=== PATIENT | female | born 1970 | race Caucasian/White ===

== ENCOUNTER 2021-10-07 12:22 | Outpatient (CLI) | payer BC, SELFPAY ==
[2021-10-08 08:08] LABS: Cholesterol* 274 mg/dL (90-199)
[2021-10-08 08:09] LABS: Triglycerides* 52 mg/dL (40-149)
[2021-10-08 08:22] LABS: HDL Cholesterol* 166 mg/dL (>=50); LDL Cholesterol Calculated 98 mg/dL (<100)
== END 2021-10-07 12:23 | disposition home or self-care (01) ==
LOC: FBOREF 12:23
PROVIDERS: PCP Family Medicine; Visit Provider Family Medicine
DX: F10.20 Alcohol dependence, uncomplicated (principal); Z13.6 Encounter for screening for cardiovascular disorders; F32.9 Major depressive disorder, single episode, unspecified
CPT/HCPCS: 80053; 80061; 82977

== ENCOUNTER 2021-12-23 13:41 | Outpatient (CLI) | payer BC, SELFPAY ==
--- NOTE | 2021-12-23 14:00 | CRLHL7_ITS ---
For Patients: As a result of the Cures Act, medical imaging exams and procedure reports are released immediately into your electronic medical record. You may view this report before your referring provider. If you have questions, please contact your health care provider. BILATERAL SCREENING MAMMOGRAM WITH COMPUTER-AIDED DETECTION AND TOMOSYNTHESIS TECHNIQUE: CC and MLO views were obtained. These mammographic images have been obtained using full-field digital technique. These mammographic images were interpreted with the benefit of computer-aided detection. Breast Tomosynthesis was used in this interpretation. COMPARISON FILM: 12/05/20, 10/24/19, 06/15/18. FINDINGS: There are scattered areas of fibroglandular density IMPRESSION: There is no radiographic evidence for malignancy. ASSESSMENT: BI-RADS Category 1: Negative RECOMMENDATION: Routine screening mammogram in 1 year. A lay language report of this examination will be provided to the patient. Herrera Ga M.D. Diagnostic Radiologist [email or web address] / be/Dictated by: Herrera Ga MD @ 12/24/2021 8:37:00 AM (Electronically Signed)
== END 2021-12-23 13:42 | disposition home or self-care (01) ==
PROVIDERS: PCP Family Medicine; Visit Provider Obstetrics & Gynecology
DX: Z12.31 Encounter for screening mammogram for malignant neoplasm of breast (principal)
CPT/HCPCS: 77063; 77067

== ENCOUNTER 2022-09-05 13:21 | Outpatient (CLI) | payer BC, SELFPAY | END 2022-09-05 13:22 | disposition home or self-care (01) | PROVIDERS: PCP Family Medicine; Visit Provider Family Medicine | DX: R79.89 Other specified abnormal findings of blood chemistry (principal); F10.20 Alcohol dependence, uncomplicated; F32.A Depression, unspecified | CPT/HCPCS: 80048; 80076; 82977 ==

== ENCOUNTER 2023-01-26 14:53 | Outpatient (CLI) | payer BC, SELFPAY ==
--- NOTE | 2023-01-26 15:00 | CRLHL7_ITS ---
For Patients: As a result of the Cures Act, medical imaging exams and procedure reports are released immediately into your electronic medical record. You may view this report before your referring provider. If you have questions, please contact your health care provider. BILATERAL SCREENING MAMMOGRAM WITH COMPUTER-AIDED DETECTION AND TOMOSYNTHESIS TECHNIQUE: CC and MLO views were obtained. These mammographic images have been obtained using full-field digital technique. These mammographic images were interpreted with the benefit of computer-aided detection. Breast tomosynthesis was used in this interpretation. COMPARISON FILM: 12/23/21, 12/05/20, 10/24/19. FINDINGS: There are scattered areas of fibroglandular density. IMPRESSION: There is no radiographic evidence for malignancy. ASSESSMENT: BI-RADS Category 1: Negative RECOMMENDATION: Routine screening mammogram in 1 year. A lay language report of this examination will be provided to the patient. HERRERA MENDEZ M.D. Diagnostic Radiologist [email or web address] Transcribed: 01/27/2023, 2:[address]/Dictated by: Herrera Mendez MD @ 01/27/2023 8:34:00 AM (Electronically Signed)
== END 2023-01-26 14:54 | disposition home or self-care (01) ==
LOC: MAMMO 14:54
PROVIDERS: PCP Family Medicine; Visit Provider Obstetrics & Gynecology
DX: Z12.31 Encounter for screening mammogram for malignant neoplasm of breast (principal)
CPT/HCPCS: 77063; 77067

== ENCOUNTER 2024-03-18 14:13 | Outpatient (CLI) | payer BC, SELFPAY | END 2024-03-18 14:14 | disposition home or self-care (01) | LOC: AMB 03-27 06:26 | PROVIDERS: PCP Family Medicine; Visit Provider Student in an Organized Health Care Education/Training Program | DX: R55 Syncope and collapse (principal); R41.82 Altered mental status, unspecified | CPT/HCPCS: A0425; A0427 ==

== ENCOUNTER 2024-03-18 14:46 | Inpatient (IN) | payer BC, SELFPAY ==
[2024-03-18] VITALS (24 sets, daily range): BP systolic 115–175; BP diastolic 78–103; PULSE 87–109; RESP 16–20; TEMP 36.6–37.6; O2SAT 96–98; BMI 20.1; BMI 20.7
--- OUTSIDE RECORDS SUMMARY | 2024-03-18 14:48 | XMS_ITS | Clinical Summary ---
Author Organization [facility] Address [place], [place] [address] Care Team Providers Care Chief [facility] Division Name Role Phone Loi Flaherty Isaac Sahu [phone] Herrera Lobo MD Primary Care Provider + Allergies No known active allergies Medications naproxen (NAPROSYN) 375 mg tabletIndication s:Injury of coccyx, initial encounter Take 1 tablet by mouth 2 times daily with meals. 30 tablet 04/07/2018 Active LESSINA 0.1-20 mg-mcg tabletIndication s:Family planning TAKE 1 TABLET BY MOUTH DAILY 84 tablet 04/15/2019 Active Active Problems No known active problems Resolved Problems Problem Noted Date Diagnosed Date Resolved Date IUD - Mirena 04/25/2008 03/11/2017 Overview (12/19/2010): Placed in 11/2010 Immunizations Name Administration Dates Next Due Influenza, IIV3 (Age >=3 years) 01/01/2004 Influenza, IIV4 11/16/2019 Td (Age >=7 Years) 07/28/2002 Tdap 05/25/2013 Family History Medical History Relation Name Comments Good Health Father Cancer-breast Maternal Aunt 2x Cancer-breast Mother Diabetes Paternal Aunt Also with a ki dney and pancreas tx. Cancer Paternal Grandfather lung ca ncer Good Health Sister Relation Name Status Comments Father Maternal Aunt Mother Paternal Aunt Paternal Grandfather Sister Social History Tobacco Use Types Packs/Day Years Used Date Smoking Tobacco: Never Smokeless Tobacco: Never Tobacco Cessation:Counseling Given: Yes Alcohol Use Standard Drinks/Week Comments Yes 0 (1 standard drink = 0.6 oz pur e alcohol) 1 to 4 drinks weekly Comments No Sex and Gender Information Value Date Recorded Sex Assigned at Not on file Legal Sex Female 5:24 AM [facility] Gender Identity Not on file Sexual Orientation Not on file 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 Not on file Not on file Obstetrics History Last Filed Vital Signs Vital Sign Reading Time Taken Comments Blood Pressure 122/85 04/07/2018 9:33 AM [facility] Pulse 82 04/07/2018 9:33 AM [facility] Temperature 36.8 C (98.3 F) 04/07/2018 9:33 AM [facility] Respiratory Rate - - Oxygen Saturation 97% 04/07/2018 9:33 AM [facility] Inhaled Oxygen Concentration - - Weight 57.2 kg (126 lb) 04/07/2018 9:33 AM [facility] Height 162.1 cm (5' 3.82) 04/07/2018 9:33 AM CS T Body Mass Index 21.75 04/07/2018 9:33 AM [facility] Plan of Treatment Health Maintenance Due Date Last Done Comments HIV for age 15-65 08/19/1987 Hepatitis C screening for age 18-79 1990 Colonoscopy through age 75 2017 Depression screening for age 12+ 03/11/2018 03/11/2017, 03/30/2015 BMI (ht and wt on same day) for age 18+ 04/07/2019 04/07/2018, 02/08/2018, 03/11/2017, Additional history exists Lipids for age 45-75 03/30/2020 03/30/2015, 05/25/2013, 01/09/2010, Additional history exists Mammogram for age 45-75 10/23/2020 10/24/19 20, 06/15/2018, 09/10/2017, Additional history exists Pneumococcal series for age 50+ (1 of 1 - PCV) 2022 Zoster (shingles) series for age 50+ (1 of 2) 2022 Tetanus booster 05/26/2023 05/25/2013, 07/28/2002 Pap test for age 21-65 09/18/2023 , 09/17/2020, 03/11/2017, Additional history exists COVID-19 vaccine series ( season) 2023 Influenza for age 50-64 10/25/2023 11/16/2019, 12/31 Tdap Completed 05/25/2013 Pneumococcal series for age 6-49 Aged Out No longer eligible based on patient's age to complete this topic Procedures Procedure Name Priority Date/Time Associated Diagnosis Comments MOLECULAR PHYSICIST THIN PREP PAP SCREEN IMAGED Routine 09/17/2020 9:40 AM CDT SCAN-MAMMOGRAPHY REPORT 10/24/2019 12:00 AM CDT LIPID PANEL W REFLEX MEASURED LDL Routine 03/30/2015 2:00 PM [facility] Lipid screening from Last 3 Months or Most Recently Relevant to Health Maintenance Results * MOLECULAR PHYSICIST THIN PREP PAP SCREEN IMAGED (09/17/2020 9:40 AM CDT) Case Report Gynecologic Cytology Report Case: [id number] Authorizing Provider: Amanda Daniels Collected: 09/17/2020 0940 MD Soraida Ordering Location: [facility] Received: 09/17/2020 1644 First Screen: Niki Portillo Specimen: MOLECULAR PHYSICIST ThinPrep Vial Screening, Cervical 09/27/2020 9:06 AM CDT [facility] INTERPRETATION/ RESULT NEGATIVE FOR INTRAEPITHELIAL LESION OR MALIGNANCY (NIL) (none) 09/27/2020 9:06 AM CDT [facility] IMEN ADEQUACY Satisfactory for evaluation Endocervical component present 09/27/2020 9:06 AM CDT [facility] HPV REQUEST HPV and PAP 09/27/2020 9:06 AM CDT [facility] Date of LMP 08/22/2020 09/27/2020 9:06 AM CDT [facility] Last Pap Date 02/23/2017 09/27/2020 9:06 AM CDT [facility] Last Pap Result NIL 9:06 AM CDT [facility] Menstrual Status 09/27/2020 9:06 AM T [facility] Comment:hormone usage, ORAL BC Additional Information 09/27/2020 9:06 AM T [facility] Comment: Interpreted at [facility] - [address], [place] [address] Automated Review Successful 09/27/2020 9:06 AM T [facility] Comment:Specimen processed s uccessfully by automated bioprocess engineer device, ThinPrep Imaging System, [employer] ANCILLARY TESTING MOLECULAR PHYSICIST HPV Ordered, Please see separate report 09/27/2020 9:06 AM T [facility] Note The pap test is a screening technique, not a diagnostic procedure. It is used primarily to screen for squamous cancers and precursor lesions. Published studies have shown that it is subject to both false negative and false positive results. The pap test should not be used as the sole means to diagnose or exclude pre-malignant and malignant lesions. 09/27/2020 9:06 AM T [facility] Other (Cervical) 09/17/2020 9:40 AM CDT 09/17/2020 4:44 PM CDT us Amanda Daniels MD PATHOLOGY/CYTOLOGY Final Result [facility] [address] [place] [address], [place] * SCAN-MAMMOGRAPHY REPORT (10/24/2019 12:00 AM CDT) Anatomical Region Laterality Modality Other us Scanner OTHER Final Result * (ABNORMAL) LIPID PANEL W REFLEX MEASURED LDL (03/30/2015 2:00 PM [facility]) CHOLESTEROL,TOTAL 230(H) 100 - 199 mg/dL 03/30/2015 2:29 PM [facility] TRIGLYCERIDES 48 <150 mg/dL 03/30/2015 2:29 PM [facility] HDL CHOLESTEROL 99 >40 mg/dL 03/30/2015 2:29 PM [facility] NON-HDL CHOLESTEROL 131 <145 mg/dl 03/30/2015 2:29 PM [facility] CHOL/HDL RATIO 2.32 <4.50 03/30/2015 2:29 PM [facility] LDL CHOLESTEROL 121 <=130 mg/dL 03/30/2015 2:29 PM [facility] PATIENT STATUS NON-FASTI NG 03/30/2015 2:29 PM [facility] Comment:HAD SMALL BITE TO EA T TODAY. Blood specimen (specimen) BLOOD SPECIMEN / Unknown Butterfly / Unknown 03/30/2015 2:00 PM [facility] 03/30/2015 2:00 PM [facility] us Cam Elizondo MD CHEMISTRY Final Resu lt [facility] [address] [place] [address], from Last 3 Months or Most Recently Relevant to Health Maintenance Insurance [facility] Care Teams Chief [facility] Division Relationship Specialty Start Date End Date Herrera Lobo MD [address] [place] [address] PCP - General Family Practice 08/21/20 Loi Flaherty [address] [place] [id number] Dermatology Dermatology 12/02/10
--- NOTE | 2024-03-18 15:07 | CRLHL7_ITS ---
For Patients: As a result of the Century Cures Act, medical imaging exams and procedure reports are released immediately into your electronic medical record. You may view this report before your referring provider. If you have questions, please contact your health care provider. INDICATION: Fall, hit left side of head. TECHNIQUE: CT head without contrast. COMPARISON: None. FINDINGS: No acute intracranial infarct or hemorrhage. No midline shift. No abnormal extra-axial fluid collection. The ventricles are of normal caliber. Moderate-sized left parietal scalp hematoma and contusion. No calvarial fracture. Paranasal sinuses and mastoid air cells are well pneumatized. IMPRESSION: 1. Moderate-sized left parietal scalp hematoma and contusion. 2. No acute intracranial traumatic injury. Please note that all CT scans at this facility use dose modulation, iterative reconstruction, and/or weight-based dosing when appropriate to reduce radiation dose to as low as reasonably achievable. Dictated by Ivonne Sears MD @ 03/18/2024 4:02:03 PM (Electronically Signed)
[2024-03-18 15:43] LABS: Basophils Absolute Auto 0.06 K/uL (0.00-0.30); Basophils Percent Auto 1.1 % (0.0-3.0); Hematocrit 32.8 % (33.0-51.0); Hemoglobin* 11.4 gm/dL (12.0-16.0); Immature Granulocytes Abs Auto 0.04 K/uL (0.00-0.30); Immature Granulocytes Pct Auto 0.7 %; Mean Corpuscular HGB Conc 35 gm/dL (32-36); Mean Corpuscular Hemoglobin 33 pg (26-34); Mean Corpuscular Volume 93 fL (80-100); Monocytes Percent Auto 8.7 % (0.0-11.0); Neutrophils Percent Auto 79.5 % (42.0-72.0); Platelet Count* 153 K/uL (140-440); RDW Coefficient of Variation % 11.7 % (11.5-15.5); Red Blood Count 3.51 m/uL (4.00-5.20)
[2024-03-18 15:49] LABS: Slide Review Reflex No
[2024-03-18 15:58] LABS: Albumin* 5.3 g/dL (3.3-5.0); Chloride* 84 mmol/L (96-114)
[2024-03-18 15:59] LABS: Potassium* 3.7 mmol/L (3.6-5.1)
[2024-03-18 16:01] LABS: Anion Gap 21 mEq/L (7-15); Aspartate Amino Transferase* 237 U/L (12-35); Bilirubin Direct* 0.5 mg/dL (0.0-0.5); Bilirubin Total* 1.6 mg/dL (0.1-1.5); Carbon Dioxide* 16 mmol/L (20-32); Creatinine* 0.5 mg/dL (0.5-1.5); Est. Creatinine Clearance* 111.52; Estimated Glomerular Filt Rate 113 ml/min
[2024-03-18 16:02] LABS: Alkaline Phosphatase* 50 U/L (40-150); Blood Urea Nitrogen* 7 mg/dL (7-30); Calcium* 9.4 mg/dL (8.4-10.6); Glucose* 121 mg/dL (60-115)
[2024-03-18 16:03] LABS: Lactate* 6.1 mmol/L (0.5-1.9)
--- NOTE | 2024-03-18 16:04 | ED.GENADULT ---
HPI - General Adult General Chief complaint: Syncope/Fainted Stated complaint: Altered mental Status Time Seen by Provider: 03/18/24 15:07 Source: patient and EMS Limitations: no limitations History of Present Illness HPI narrative: 53-year-old female presenting today after syncopal episode at work. Patient states that she does not remember exactly what happened but she was finishing up at work and packing her bags in the next thing she remembers she is surrounded by people and she is on the ground. She is complaining of a headache on the left side of the head. Patient states that she has had syncopal episodes in the past, she has a long history of alcohol use disorder. Her states that she passes out frequently at home but never at work in the past. She believes she likely hit something on the way down if not the ground causing her her headache. She is not anticoagulated. She does not remember having any shaking or confusion before this happened. Patient denies any history of seizures in the past or DTs. She denies any recent illnesses. She denies any alcohol use this morning. Patient has been drinking for many years anywhere from 7-15 beverages per day. Denies other drug use. Per EMS patient was combative when she woke up, and then calmed down. Related Data Previous Rx's ?Medication ?Instructions ?Recorded norethindrone (contraceptive) 0.35 0.35 mg PO QDAY #84 tabs 05/18/23 mg tablet Allergies Allergy/AdvReac Type Severity Reaction Status Date / Time No Known Drug Allergies Allergy Verified 03/18/24 14:57 Review of Systems Status of ROS: Reports: 10 or more systems reviewed and unremarkable except as noted in History and below [facility] Medical History Major depression, recurrent ?F33.9 - Major depressive disorder, recurrent, unspecified (ICD-10) Alcoholic peripheral neuropathy ?G62.1 - Alcoholic polyneuropathy (ICD-10) Tobacco use disorder ?F17.200 - Nicotine dependence, unspecified, uncomplicated (ICD-10) Moderate malnutrition ?E44.0 - Moderate protein-calorie malnutrition (ICD-10) Menorrhagia with irregular cycle ?N92.1 - Excessive and frequent menstruation with irregular cycle (ICD-10) History of malignant neoplasm of skin in adulthood ?Z85.828 - Personal history of other malignant neoplasm of skin (ICD-10) Elevated liver function tests ?R79.89 - Other specified abnormal findings of blood chemistry (ICD-10) Alcoholism ?F10.20 - Alcohol dependence, uncomplicated (ICD-10) Surgical History Status post dilation and curettage ?Z98.890 - Other specified postprocedural states (ICD-10) Family History Aunt Type 2 diabetes mellitus Breast cancer Diabetes Maternal Grandmother High cholesterol Mother Breast cancer Paternal Grandfather Alcohol dependence Paternal Grandmother Alcohol dependence Sister Alcohol dependence Social History Narrative: Cis-gender, heterosexual woman. Relationship status: . 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 E-cigarettes: No Alcohol: Alcohol abuse. Previously 10-12 Syed[employer] Hard Lemonade daily. Now 4-5 beers daily with 10-12 on the weekends. Illicit/recreational drugs: No Safety concerns at home or work: No Dietary restriction(s): No Exercise: Yes, walk/jog at least 30 minutes daily 6-7 days per week. 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 What is your current living situation?: I presently have a place to live Problems where you live: no known problems In the past 12 months, utilities in danger of being shut off: no In past 12 months, lack of transportation kept you from medical appts, meetings, work, or getting things needed for daily living: no In the past 12 mos, have been you worried that your food would run out before you had money to buy more?: never true In the past 12 mos, the food you bought just didn't last and you didn't have money to buy more?: never true Smoking Status: Current every day smoker Do you use any of these nicotine containing products: None Second hand tobacco smoke exposure: No How often do you have a drink containing alcohol: 4 or more times a week How many standard drinks containing alcohol do you have on a typical day: 10 or more How often do you have six or more drinks on one occasion: Daily or almost daily AUDIT-C Alcohol total score: 12 Non-prescribed substance use: denies use Are you now , , , , never or living with a partner: Social isolation score (0-1 are the most socially isolated patients): 1 How often does anyone, including family, friends and others, physically hurt you: never How often does anyone, including family, friends and others, insult or talk down to you: never How often does anyone, including family, friends and others, threaten you with harm: never How often does anyone, including family, friends and others, scream or curse at you: never Exam Narrative: Exam Narrative: Well-nourished well-developed patient in no acute distress, slight tremor. Alert and oriented x3. Answers questions appropriately. Mood and affect are appropriate. Thoughts are goal oriented and rational. No tangential or magical thinking noted. Patient speaks in full sentences without needing to catch her breath. GCS is 15. Patient is speaking and breathing without difficulty. There is no obvious significant bleeding noted. HEENT: Patient has a very large parietal hematoma, no broken skin. No crepitus. Pupils are equally round reactive to light. Extraocular muscles are intact. Conjunctivae are moist without any icterus noted. Moist mucous membranes. Posterior pharynx is normal. Appears that she bit her tongue. Neck is soft without any lymphadenopathy or thyromegaly. No masses are appreciated. Cardiovascular: Heart is regular rate and rhythm S1 and S2 are present without any murmurs. Lungs: Clear to auscultation bilaterally no wheezes rhonchi or rales are appreciated. Patient takes deep breaths without any discomfort. Patient has no tenderness to palpation of the anterior, lateral posterior chest wall. Abdomen: Soft and nontender nondistended with normal bowel sounds. No guarding or rebound. No masses or organomegaly appreciated. Extremities: Bilateral lower extremities are without edema. Normal DP and PT pulses. Skin: Well perfused without any obvious rashes. Back: Normal appearance. Patient has no tenderness to palpation at the cervical, thoracic or lumbar spine. Patient has full range of motion at the neck with flexion, extension, side way bending and rotation without pain. Const: Vital Signs, click to edit/add: Vital Signs - 24 hr 03/18/24 14:52 03/18/24 15:24 03/18/24 15:30 Temperature 97.9 F Pulse Rate 98 96 Pulse Rate [Right Pulse Oximeter] 91 Respiratory Rate 18 Blood Pressure Blood Pressure [Ri ght Upper Arm] 175/103 H Pulse Oximetry 98 97 97 Oxygen Delivery Me thod Room Air 03/18/24 15:32 03/18/24 15:45 03/18/24 16:00 Temperature Pulse Rate 96 95 Pulse Rate [Right Pulse Oximeter] Respiratory Rate Blood Pressure Blood Pressure [Ri ght Upper Arm] Pulse Oximetry 98 97 97 Oxygen Delivery Me thod 03/18/24 16:10 03/18/24 16:15 03/18/24 16:31 Temperature Pulse Rate 94 95 104 H Pulse Rate [Right Pulse Oximeter] Respiratory Rate Blood Pressure 154/91 H 159/99 H Blood Pressure [Ri ght Upper Arm] Pulse Oximetry 97 97 98 Oxygen Delivery Me thod 03/18/24 16:45 Temperature Pulse Rate 99 Pulse Rate [Right Pulse Oximeter] Respiratory Rate Blood Pressure Blood Pressure [Ri ght Upper Arm] Pulse Oximetry 97 Oxygen Delivery Me thod Course Course ED Course: IV is established, 1 L of normal saline and started and labs were ordered. Patient is sent to the CT scanner to rule out acute intracranial pathology. Head CT shows the scalp hematoma, no intracranial pathology. CBC shows mild anemia with a hemoglobin of 11.4. INR is normal at 0.92. Sodium is quite low at 121, normal potassium at 3.7. Chloride is low at 84, carbon dioxide is low at 16. Normal renal function. LFTs are elevated with an AST of 237 and ALT of 197, normal alkaline phosphatase. Total bili slightly elevated at 1.6. Lactate markedly elevated at 6.1. Urine drug screen is negative, salicylates and acetaminophen negative, alcohol less than 0.01. Discussed patient with Dr. Perez who will accept the patient for admission. Patient was tremulous so we did give her 1 mg of IV Ativan and started a nicotine patch. Vital Signs Vital signs: Initial Vital Signs Temperature 97.9 F 03/18/24 14:52 Temperature Source Temporal Artery Scan 03/18/24 14:52 Pulse Rate 91 03/18/24 14:52 Pulse Rhythm Regular 03/18/24 14:52 Pulse Strength 3+ Normal 03/18/24 14:52 Respiratory Rate 18 03/18/24 14:52 Blood Pressure 175/103 H 03/18/24 14:52 Blood Pressure Mean 127 H 03/18/24 14:52 Blood Pressure Position Sitting 03/18/24 14:52 Pulse Oximetry 98 03/18/24 14:52 Oxygen Delivery Method Room Air 03/18/24 14:52 Vital Signs Temperature 97.9 F 03/18/24 14:52 Pulse Rate 91 03/18/24 14:52 Respiratory Rate 18 03/18/24 14:52 Blood Pressure 175/103 H 03/18/24 14:52 Pulse Oximetry 98 03/18/24 14:52 Oxygen Delivery Method Room Air 03/18/24 14:52 Temperature 97.9 F 03/18/24 14:52 Pulse Rate 99 03/18/24 16:45 Respiratory Rate 18 03/18/24 14:52 Blood Pressure 159/99 H 03/18/24 16:31 Pulse Oximetry 97 03/18/24 16:45 Oxygen Delivery Method Room Air 03/18/24 14:52 Medications Administered Medications: Generic Name Dose Route Start Last Admin Trade Name Freq PRN Reason Stop Dose Admin Nicotine 1 patch 03/18/24 17:30 03/18/24 17:34 Nicotine 21 Mg Patch TRANSDERMA 1 patch Q24H ROSELYN Administration Discontinued Medications Generic Name Dose Route Start Last Admin Trade Name Freq PRN Reason Stop Dose Admin Sodium Chloride 1,000 mls @ 1,000 mls/hr 03/18/24 16:15 03/18/24 17:10 0.9 % Sodium Chloride 1000 Ml IV 03/18/24 17:14 Infused .Q1H ROSELYN Infusion Lorazepam 1 mg 03/18/24 17:29 03/18/24 17:33 Lorazepam 2 Mg/Ml Inj IVP 03/18/24 17:30 1 mg ONCE ONE Administration Medical Decision Making MDM Narrative Medical decision making narrative: 53-year-old female with cough alcohol use disorder, hyponatremia, close head injury-will be admitted for further management. Lab Data Lab results reviewed: Yes I reviewed the patient's lab results Labs: Lab Results 03/18/24 03/18/24 Range/Units 15:30 17:00 WBC 5.40 (4.50-11.00) K/uL RBC 3.51 L (4.00-5.20) m/uL Hgb 11.4 L (12.0-16.0) gm/dL Hct 32.8 L (33.0-51.0) % MCV 93 (80-100) fL MCH 33 (26-34) pg MCHC 35 (32-36) gm/dL RDW Coeff of Miranda 11.7 (11.5-15.5) % Plt Count 153 (140-440) K/uL Neut % (Auto) 79.5 H (42.0-72.0) % Lymph % (Auto) 10.0 L (20-44) % [place] % (Auto) 8.7 (0.0-11.0) % Eos % (Auto) 0.0 (0.0-7.0) % Baso % (Auto) 1.1 (0.0-3.0) % Neut # (Auto) 4.30 (1.7-7.0) K/uL Lymph # (Auto) 0.50 L (0.90-2.90) K/uL [place] # (Auto) 0.50 (0.00-0.90) K/UL Eos # (Auto) 0.00 (0.00-0.50) K/uL Baso # (Auto) 0.06 (0.00-0.30) K/uL Abs Immat Gran (auto) 0.04 (0.00-0.30) K/uL Imm/Tot Granulo (auto) 0.7 % INR 0.92 (0.91-1.10) Sodium 121 L* (135-149) mmol/L Potassium 3.7 (3.6-5.1) mmol/L Chloride 84 L (96-114) mmol/L Carbon Dioxide 16 L (20-32) mmol/L Anion Gap 21 H (7-15) mEq/L BUN 7 (7-30) mg/dL Creatinine 0.5 (0.5-1.5) mg/dL Estimated Creat Clear 111.52 Estimated GFR 113 ml/min Glucose 121 H (60-115) mg/dL Lactate 6.1 H* (0.5-1.9) mmol/L Calcium 9.4 (8.4-10.6) mg/dL Magnesium 1.9 (1.5-2.6) mg/dL Total Bilirubin 1.6 H (0.1-1.5) mg/dL Direct Bilirubin 0.5 (0.0-0.5) mg/dL AST 237 H (12-35) U/L ALT 197 H (4-35) U/L Alkaline Phosphatase 50 (40-150) U/L Total Creatine Kinase 143 H (41-117) U/L Troponin I 0.03 (0.01-0.04) ng/mL C-Reactive Protein < 0.5 L (0.5-1.0) mg/dL Total Protein 8.0 (6.0-8.3) g/dL Albumin 5.3 H (3.3-5.0) g/dL Lipase 134 (23-300) U/L Urine Color Yellow (Yellow) Urine Appearance Clear (Clear) Urine pH 7.0 (5.0-8.5) Ur Specific [place] 1.020 (1.000-1.030) Urine Protein 2+ A (Negative) Urine Glucose (UA) Negative (Negative) Urine Ketones 2+ A (Negative) Urine Blood 3+ A (Negative) Urine Nitrite Negative (Negative) Urine Bilirubin Negative (Negative) Urine Urobilinogen 0.2 (0.2-1.0) Ur Leukocyte Esterase Negative (Negative) Urine RBC 2-5 A (0-2) Urine WBC 0-2 (0-5) Ur Squamous Epith Cells Few (None-Few) Urine Bacteria Few A (None) Salicylates < 1.0 L (1.0-10) mg/dL Urine Opiates Screen Negative (Negative) Ur Oxycodone Screen Negative (Negative) Urine Methadone Screen Negative (Negative) Acetaminophen < 10.0 L (10.0-30.0) ug/mL Ur Barbiturates Screen Negative (Negative) U Tricyclic Antidepress Negative (Negative) Ur Phencyclidine Scrn Negative (Negative) Ur Amphetamines Screen Negative (Negative) U Methamphetamines Scrn Negative (Negative) U Benzodiazepines Scrn Negative (Negative) Urine Cocaine Screen Negative (Negative) U Marijuana (THC) Screen Negative (Negative) Ur Drug Screen Comment See Note Ethyl Alcohol < 0.01 L (0.01-0.03) % Imaging Data CT scan - head: Attestation: I have reviewed the pertinent imaging results. Radiologist's impression: CT head without contrast. COMPARISON: None. FINDINGS: No acute intracranial infarct or hemorrhage. No midline shift. No abnormal extra-axial fluid collection. The ventricles are of normal caliber. Moderate-sized left parietal scalp hematoma and contusion. No calvarial fracture. Paranasal sinuses and mastoid air cells are well pneumatized. IMPRESSION: 1. Moderate-sized left parietal scalp hematoma and contusion. 2. No acute intracranial traumatic injury. Discharge Plan Discharge Clinical Impression: Acute hyponatremia, Alcohol use disorder, Closed head injury, Elevated liver function tests Patient Disposition: Admitted As Observation Condition: Stable Prescriptions: No Action norethindrone (contraceptive) 0.35 mg tablet 0.35 mg PO QDAY Qty: 84 4RF Follow Up/Referrals: Herrera Lobo MD [Primary Care Provider] -
[2024-03-18 16:08] LABS: Alanine Aminotransferase* 197 U/L (4-35)
[2024-03-18] MEDS: 0.9 % SODIUM CHLORIDE 1000 ml 1,000 ML IV (16:10)
[2024-03-18 16:12] LABS: Acetaminophen* < 10.0 ug/mL (10.0-30.0); C Reactive Protein* < 0.5 mg/dL (0.5-1.0); Sodium* 121 mmol/L (135-149)
[2024-03-18 16:22] LABS: Creatine Kinase* 143 U/L (41-117); Lipase* 134 U/L (23-300)
[2024-03-18 16:23] LABS: Magnesium* 1.9 mg/dL (1.5-2.6)
[2024-03-18 16:27] LABS: Salicylate* < 1.0 mg/dL (1.0-10)
[2024-03-18 16:35] LABS: Troponin I* 0.03 ng/mL (0.01-0.04)
[2024-03-18 16:36] LABS: Ethanol* < 0.01 % (0.01-0.03); INR 0.92 (0.91-1.10); Prothrombin Time 12.9 Seconds
[2024-03-18 17:08] LABS: Appearance Urine Clear (Clear); Bilirubin Urine Negative (Negative); Blood Urine 3+ (Negative); Color Urine Yellow (Yellow); Glucose Urine Negative (Negative); Ketones Urine 2+ (Negative); Leukocyte Esterase Urine Negative (Negative); Nitrite Urine Negative (Negative); Protein Urine 2+ (Negative); Urobilinogen Urine 0.2 (0.2-1.0)
[2024-03-18 17:18] LABS: Amphetamine Screen Urine Negative (Negative); Barbiturate Screen Urine Negative (Negative); Benzodiazepines Screen Urine Negative (Negative); Cannabinoid Screen Urine Negative (Negative); Cocaine Screen Urine Negative (Negative); Methadone Screen Urine Negative (Negative); Methamphetamines Screen Urine Negative (Negative); Opiate Screen Urine Negative (Negative); Oxycodone Screen Urine Negative (Negative); Phencyclidine Screen Urine Negative (Negative); Tricyclic Antidepressant Urine Negative (Negative)
[2024-03-18 17:25] LABS: Bacteria Urine Few; Squamous Epithelial Cell Urine Few (None-Few); WBC Urine 0-2 (0-5)
--- NOTE | 2024-03-18 17:27 | P.IMHP_ITS ---
Hospitalist- H&P: HPI History of Present Illness Date Seen: 03/18/24 Chief complaint: Altered mental Status Narrative: Diana Dupont is a 53 year old female who presented to our ER by ambulance today after a syncopal episode at work. She doesn't remember having LOC; remembers packing up to go home, then waking up on the ground with people around her. Doesn't remember having any lightheadedness, dizziness, chest pain, or palpitations. Has had syncope at home in the past, presumed to be 2/2 ETOH use disorder. No history of seizures. Drinks daily (typically morning, lunch break, evenings); 10+ beers/day. No history of withdrawal but doesn't remember the last time she went a day without drinking. Last ETOH use the evening of 03/17/24. Also notes that she's had a decreased appetite over the past few days, not eating well as a result. Intermittent vomiting, no hematemesis. No abdominal pain. ER: - Na of 121, lactate 6.1, AG of 21, elevated AST/ALT/bilirubin - received 1L NS - no acute intracranial abnormalities on CT Histories updated below, Dr. Lobo is PCP locally. Review of Systems Status of ROS: Reports: 10 or more systems reviewed and unremarkable except as noted in History and below [facility] Medical History (Updated 03/18/24 @ 20:26 by Lory Perez MD) Major depression, recurrent ?F33.9 - Major depressive disorder, recurrent, unspecified (ICD-10) Alcoholic peripheral neuropathy ?G62.1 - Alcoholic polyneuropathy (ICD-10) Tobacco use disorder ?F17.200 - Nicotine dependence, unspecified, uncomplicated (ICD-10) Moderate malnutrition ?E44.0 - Moderate protein-calorie malnutrition (ICD-10) Menorrhagia with irregular cycle ?N92.1 - Excessive and frequent menstruation with irregular cycle (ICD-10) History of malignant neoplasm of skin in adulthood ?Z85.828 - Personal history of other malignant neoplasm of skin (ICD-10) Elevated liver function tests ?R79.89 - Other specified abnormal findings of blood chemistry (ICD-10) Surgical History Status post dilation and curettage ?Z98.890 - Other specified postprocedural states (ICD-10) Family History Aunt Type 2 diabetes mellitus Breast cancer Diabetes Maternal Grandmother High cholesterol Mother Breast cancer Paternal Grandfather Alcohol dependence Paternal Grandmother Alcohol dependence Sister Alcohol dependence Social History (Updated 03/18/24 @ 19:00 by Lory Perez MD) Narrative: Lives with Gael locally (would be medical decision maker if needed). Daily ETOH (10+ beers daily). One adult son deployed in the [employer] [place], younger son at home. Other data per below. Cis-gender, heterosexual woman. Relationship status: . 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 E-cigarettes: No Alcohol: Alcohol abuse. Previously 10-12 Syed[employer] Hard Lemonade daily. Now 4-5 beers daily with 10-12 on the weekends. Illicit/recreational drugs: No Safety concerns at home or work: No Dietary restriction(s): No Exercise: Yes, walk/jog at least 30 minutes daily 6-7 days per week. 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[employer] Smoker, alcoholic What is your current living situation?: I presently have a place to live Problems where you live: no known problems Problems where you live details: no known problems In the past 12 months, utilities in danger of being shut off: no In past 12 months, lack of transportation kept you from medical appts, meetings, work, or getting things needed for daily living: no In the past 12 mos, have been you worried that your food would run out before you had money to buy more?: never true In the past 12 mos, the food you bought just didn't last and you didn't have money to buy more?: never true Highest level of school completed/degree received: Bachelor's degree Smoking Status: Current every day smoker Do you use any of these nicotine containing products: None Second hand tobacco smoke exposure: No How often do you have a drink containing alcohol: 4 or more times a week Alcohol type: beer How many standard drinks containing alcohol do you have on a typical day: 10 or more How often do you have six or more drinks on one occasion: Daily or almost daily AUDIT-C Alcohol total score: 12 Non-prescribed substance use: denies use Are you now , , , , never or living with a partner: Social isolation score (0-1 are the most socially isolated patients): 1 How often does anyone, including family, friends and others, physically hurt you : never How often does anyone, including family, friends and others, insult or talk down to you: never How often does anyone, including family, friends and others, threaten you with harm: never How often does anyone, including family, friends and others, scream or curse at you: never service: No Meds Home Medications and Allergies Home Medication Comments: On daily Norethindrone, no other daily medications. Allergies Allergy/AdvReac Type Severity Reaction Status Date / Time No Known Drug Allergies Allergy Verified 03/18/24 14:57 Exam Narrative: Exam Narrative: GEN: Alert and answering questions appropriately HEENT: + hematoma L parietal scalp, no active bleeding. EOMIs bilaterally, no scleral icterus CV: RRR, No concerning murmurs R: LCTA bilaterally without concerning wheezing Ab: soft, nontender, no HSM Ext: wwp, no concerning edema Skin: No concerning skin lesions or rashes on exposed skin Neuro: Nonfocal Psych: Appropriate Const: Vital Signs, click to edit/add: Vital Signs - 24 hr 03/18/24 14:52 03/18/24 15:24 03/18/24 15:30 Temperature 97.9 F Pulse Rate 98 96 Pulse Rate [Right Pulse Oximeter] 91 Respiratory Rate 18 Blood Pressure Blood Pressure [Ri ght Upper Arm] 175/103 H Pulse Oximetry 98 97 97 Oxygen Delivery Me thod Room Air 03/18/24 15:32 03/18/24 15:45 03/18/24 16:00 Temperature Pulse Rate 96 95 Pulse Rate [Right Pulse Oximeter] Respiratory Rate Blood Pressure Blood Pressure [Ri ght Upper Arm] Pulse Oximetry 98 97 97 Oxygen Delivery Me thod 03/18/24 16:10 03/18/24 16:15 03/18/24 16:31 Temperature Pulse Rate 94 95 104 H Pulse Rate [Right Pulse Oximeter] Respiratory Rate Blood Pressure 154/91 H 159/99 H Blood Pressure [Ri ght Upper Arm] Pulse Oximetry 97 97 98 Oxygen Delivery Me thod 03/18/24 16:45 Temperature Pulse Rate 99 Pulse Rate [Right Pulse Oximeter] Respiratory Rate Blood Pressure Blood Pressure [Ri ght Upper Arm] Pulse Oximetry 97 Oxygen Delivery [facility] Hospitalist - H&P: Result Labs Labs: Short CBC 03/18/24 Range/Units 15:30 WBC 5.40 (4.50-11.00) K/uL Hgb 11.4 L (12.0-16.0) gm/dL Hct 32.8 L (33.0-51.0) % Plt Count 153 (140-440) K/uL BMP 03/18/24 15:30 Sodium 121 L* Potassium 3.7 Chloride 84 L Carbon Dioxide 16 L BUN 7 Creatinine 0.5 Glucose 121 H Calcium 9.4 Cardiac Enzymes 03/18/24 Range/Units 15:30 Total Creatine Kinase 143 H (41-117) U/L Troponin I 0.03 (0.01-0.04) ng/mL Liver Function 03/18/24 Range/Units 15:30 Total Bilirubin 1.6 H (0.1-1.5) mg/dL Direct Bilirubin 0.5 (0.0-0.5) mg/dL AST 237 H (12-35) U/L ALT 197 H (4-35) U/L Alkaline Phosphatase 50 (40-150) U/L Albumin 5.3 H (3.3-5.0) g/dL Urine 03/18/24 Range/Units 17:00 Urine Color Yellow (Yellow) Urine Appearance Clear (Clear) Urine pH 7.0 (5.0-8.5) Ur Specific [place] 1.020 (1.000-1.030) Urine Protein 2+ A (Negative) Urine Glucose (UA) Negative (Negative) Assessment and Plan Assessment and plan (1) Acute hyponatremia: Problem comment: - presumably secondary to beer potomania, severe - low-dose NS, fluid restriction - encourage high solute po intake (protein supplementation, etc) - monitor sodium closely to ensure appropriate rate of correction Status: Acute (2) Lactic acidosis: Problem comment: - lactate 6.1 in ER 03/18/24 - appears 2/2 acute dehydration, likely also a starvation component given decreased po intake in the setting of alcohol use disorder - no evidence of acute infectious process - continue IVFs, follow lactate Status: Acute (3) Alcohol use disorder: Problem comment: - last drink 03/17/24 in the evening - with sequela of elevated LFTs, hyponatremia - high risk for withdrawal - given one dose of Phenobarbital and initiated Gabapentin 03/18/24, CIWA and prn Lorazepam Status: Acute (4) Closed head injury: Problem comment: - 03/18/24, syncopal episode at work - no acute abnormalities on head CT 03/18/24 Status: Acute Plan - per above - Full Code - patient appropriate for inpatient admission given high risk of decompensation from ETOH withdrawal in addition to lactic acidosis + severe hyponatremia requiring IVFs and close monitoring
[2024-03-18] MEDS: LORazepam 2 MG/ML inj 1 MG IVP (17:33)
[2024-03-18] MEDS: NICOTINE 21 MG PATCH 1 PATCH TRANSDERMA (17:34)
[2024-03-18] MEDS: THIAMINE 100 MG TABLET PO (19:09)
[2024-03-18] MEDS: PANTOPRAZOLE SODIUM 40 MG INJ IVP (19:43)
[2024-03-18] MEDS: 0.9 % SODIUM CHLORIDE 1000 ml 1,000 ML 75 ML IV (19:44)
[2024-03-18] MEDS: SODIUM CHLORIDE 0.9 % (FLUSH) 10 ML SYRINGE 5 ML IVF (19:44)
[2024-03-18] MEDS: PHENobarbitaL 260 MG in 0.9 % SODIUM CHLORIDE 100 ml 100 ML 208 MG IVPB (19:45)
[2024-03-18 20:10] LABS: Chloride* 87 mmol/L (96-114); Potassium* 3.9 mmol/L (3.6-5.1)
[2024-03-18 20:12] LABS: Creatinine* 0.5 mg/dL (0.5-1.5); Est. Creatinine Clearance* 114.86; Estimated Glomerular Filt Rate 113 ml/min
[2024-03-18] MEDS: GABAPENTIN 300 MG CAPSULE PO (20:12)
[2024-03-18 20:13] LABS: Anion Gap 14 mEq/L (7-15); Blood Urea Nitrogen* 8 mg/dL (7-30); Calcium* 9.3 mg/dL (8.4-10.6); Carbon Dioxide* 22 mmol/L (20-32); Glucose* 86 mg/dL (60-115)
[2024-03-18 20:21] LABS: Sodium* 123 mmol/L (135-149)
--- NOTE | 2024-03-18 22:18 | PC.NURSE ---
Pt CIWA between 4-6 since 1899. Pt Resting comfortably at this time. Reporting no pain. N/V. CIWA will be Q4 for time being per protocol.
[2024-03-18 23:22] LABS: Sodium* 123 mmol/L (135-149)
[2024-03-19] VITALS (24 sets, daily range): BP systolic 109–151; BP diastolic 73–101; PULSE 76–120; RESP 14–20; TEMP 36.7–37.3; O2SAT 94–100
[2024-03-19] MEDS: OMEPRAZOLE 20 MG CAPSULE DR PO (06:11)
--- NOTE | 2024-03-19 06:14 | PC.NURSE ---
Pt rested well overnight. Pt up SBA and walking to BR, voiding. Afebrile. Shaking much more severe this morning than last night. Reports no N/V. No Headache. Alert and oriented. Not anxious. Cooperative and Pleasant. Tele NSR.
[2024-03-19] MEDS: LORazepam 1 MG TABLET PO ×4 (07:44→20:48)
--- NOTE | 2024-03-19 07:46 | PM.IMPN1 ---
Progress Note: A&P Assessment and plan (1) Acute hyponatremia: Problem details: - presumably secondary to beer potomania, severe - low-dose NS, fluid restriction - encourage high solute po intake (protein supplementation, etc) - monitor sodium closely to ensure appropriate rate of correction - 03/19 sodium 121-123-125, continue monitor. Consider additional sodium tablets tomorrow if needed. Remainder electrolytes currently adequate. IV Mag supplement ordered for magnesium of 1.9 Status: Acute (2) Lactic acidosis: Problem details: - lactate 6.1 in ER 03/18/24 - appears 2/2 acute dehydration, likely also a starvation component given decreased po intake in the setting of alcohol use disorder - no evidence of acute infectious process - continue IVFs, follow lactate - 03/19 lactate 1.0 following IVF Status: Acute (3) Alcohol use disorder: Problem details: - last drink 03/17/24 in the evening - with sequela of elevated LFTs, hyponatremia - high risk for withdrawal - given one dose of Phenobarbital and initiated Gabapentin 03/18/24, CIWA and prn Lorazepam - 03/19 adding phenobarbital 65 mg b.i.d. p.r.n. following CIWA protocol given ongoing symptomatology, vitals - continue thiamine, folic acid Status: Acute (4) Closed head injury: Problem details: - 03/18/24, syncopal episode at work - no acute abnormalities on head CT 03/18/24 Status: Acute (5) Syncope: Problem details: - in setting of chronic alcohol use - telemetry - echo ordered Status: Acute (6) Transaminitis: Problem details: - AST 148, ALT 176, GGT 471, total bili 1.8 - continue to monitor Status: Acute Time Spent With Patient Total time spent: Total time spent caring for the patient today was 45 minutes. This includes time spent for the visit reviewing the chart, time spent during the visit, time spent after the visit and documentation and planning in coordination of care. Subjective Date Seen: 03/19/24 Interval history: Patient is seen sitting up in bed this morning. Quite tremulous. Appears anxious. Denies headache or dizziness. Denies chest pain or shortness of breath. No nausea. Not much of an appetite. Receive 1 dose phenobarbital on admission. Receiving Ativan as needed per CIWA protocol Exam Narrative: Exam Narrative: PHYSICAL EXAM General: Mildy anxious, tremulous HEENT: Normocephalic, atraumatic, sclera white, EOMI, oral mucosa moist Cardiovascular: mild tachycardia, S1S2. No pitting edema Pulmonary: CTA bilaterally without rhonchi, rales, expiratory wheezes. No dyspnea Neurological: Alert, answering questions appropriately, cranial nerves intact, no focal findings Extremities: No gross joint deformity or swelling. AROMI. Neurovascularly intact Skin: Warm, dry. Const: Vital Signs, click to edit/add: Vital Signs - 24 hr 03/18/24 14:52 03/18/24 15:24 03/18/24 15:30 Temperature 97.9 F Pulse Rate 98 96 Pulse Rate [Left R adial] Pulse Rate [Right Pulse Oximeter] 91 Respiratory Rate 18 Blood Pressure Blood Pressure [Le ft Arm] Blood Pressure [Ri ght Upper Arm] 175/103 H Pulse Oximetry 98 97 97 Oxygen Delivery Me od Room Air 03/18/24 15:32 03/18/24 15:45 03/18/24 16:00 Temperature Pulse Rate 96 95 Pulse Rate [Left R adial] Pulse Rate [Right Pulse Oximeter] Respiratory Rate Blood Pressure Blood Pressure [Le ft Arm] Blood Pressure [Ri ght Upper Arm] Pulse Oximetry 98 97 97 Oxygen Delivery Me thod 03/18/24 16:10 03/18/24 16:15 03/18/24 16:31 Temperature Pulse Rate 94 95 104 H Pulse Rate [Left R adial] Pulse Rate [Right Pulse Oximeter] Respiratory Rate Blood Pressure 154/91 H 159/99 H Blood Pressure [Le ft Arm] Blood Pressure [Ri ght Upper Arm] Pulse Oximetry 97 97 98 Oxygen Delivery Me thod 03/18/24 16:45 03/18/24 17:06 03/18/24 17:15 Temperature Pulse Rate 99 97 92 Pulse Rate [Left R adial] Pulse Rate [Right Pulse Oximeter] Respiratory Rate Blood Pressure 164/95 H Blood Pressure [Le ft Arm] Blood Pressure [Ri ght Upper Arm] Pulse Oximetry 97 97 97 Oxygen Delivery Me thod 03/18/24 17:30 03/18/24 17:32 03/18/24 17:33 Temperature Pulse Rate 94 96 94 Pulse Rate [Left R adial] Pulse Rate [Right Pulse Oximeter] Respiratory Rate 20 Blood Pressure 155/94 H Blood Pressure [Le ft Arm] Blood Pressure [Ri ght Upper Arm] Pulse Oximetry 96 97 96 Oxygen Delivery Me thod 03/18/24 18:21 03/18/24 18:21 03/18/24 19:00 Temperature 99.6 F Pulse Rate 107 H Pulse Rate [Left R adial] Pulse Rate [Right Pulse Oximeter] Respiratory Rate 18 20 Blood Pressure Blood Pressure [Le ft Arm] 142/93 H Blood Pressure [Ri ght Upper Arm] Pulse Oximetry 97 97 Oxygen Delivery Me thod Room Air Room Air 03/18/24 19:35 03/18/24 19:37 03/18/24 21:20 Temperature 98.4 F 98.4 F 98.8 F Pulse Rate Pulse Rate [Left R adial] 87 87 109 H Pulse Rate [Right Pulse Oximeter] Respiratory Rate 18 18 16 Blood Pressure Blood Pressure [Le ft Arm] 137/91 H 137/91 H 115/78 Blood Pressure [Ri ght Upper Arm] Pulse Oximetry 97 97 97 Oxygen Delivery Me thod Room Air Room Air Room Air 03/18/24 21:22 03/18/24 22:09 03/18/24 22:15 Temperature 98.8 F 98.7 F Pulse Rate Pulse Rate [Left R adial] 109 H 109 H 95 Pulse Rate [Right Pulse Oximeter] Respiratory Rate 16 16 16 Blood Pressure Blood Pressure [Le ft Arm] 115/78 147/91 H Blood Pressure [Ri ght Upper Arm] Pulse Oximetry 97 98 Oxygen Delivery Me thod Room Air 03/18/24 22:17 03/19/24 02:26 03/19/24 02:27 Temperature 98.7 F 98.6 F 98.6 F Pulse Rate Pulse Rate [Left R adial] 95 90 90 Pulse Rate [Right Pulse Oximeter] Respiratory Rate 16 16 16 Blood Pressure Blood Pressure [Le ft Arm] 147/91 H 147/96 H 147/96 H Blood Pressure [Ri ght Upper Arm] Pulse Oximetry 98 100 100 Oxygen Delivery Me thod Room Air Room Air Room Air 03/19/24 06:55 03/19/24 07:39 Temperature 99.2 F Pulse Rate 83 Pulse Rate [Left R adial] 97 Pulse Rate [Right Pulse Oximeter] Respiratory Rate 18 Blood Pressure Blood Pressure [Le ft Arm] 145/99 H Blood Pressure [Ri ght Upper Arm] Pulse Oximetry 99 Oxygen Delivery Me thod Room Air Labs Labs: Laboratory Results - last 24 hr 03/18/24 03/18/24 03/18/24 15:30 17:00 19:45 WBC 5.40 RBC 3.51 L Hgb 11.4 L Hct 32.8 L MCV 93 MCH 33 MCHC 35 RDW Coeff of Miranda 11.7 Plt Count 153 Neut % (Auto) 79.5 H Lymph % (Auto) 10.0 L [place] % (Auto) 8.7 Eos % (Auto) 0.0 Baso % (Auto) 1.1 Neut # (Auto) 4.30 Lymph # (Auto) 0.50 L [place] # (Auto) 0.50 Eos # (Auto) 0.00 Baso # (Auto) 0.06 Abs Immat Gran (auto) 0.04 Imm/Tot Granulo (auto) 0.7 INR 0.92 Sodium 121 L* 123 L* Potassium 3.7 3.9 Chloride 84 L 87 L Carbon Dioxide 16 L 22 Anion Gap 21 H 14 BUN 7 8 Creatinine 0.5 0.5 Estimated Creat Clear 111.52 114.86 Estimated GFR 113 113 Glucose 121 H 86 Lactate 6.1 H* 1.0 Calcium 9.4 9.3 Magnesium 1.9 Total Bilirubin 1.6 H Direct Bilirubin 0.5 AST 237 H ALT 197 H Alkaline Phosphatase 50 Total Creatine Kinase 143 H Troponin I 0.03 C-Reactive Protein < 0.5 L Total Protein 8.0 Albumin 5.3 H Lipase 134 Urine Color Yellow Urine Appearance Clear Urine pH 7.0 Ur Specific [place] 1.020 Urine Protein 2+ A Urine Glucose (UA) Negative Urine Ketones 2+ A Urine Blood 3+ A Urine Nitrite Negative Urine Bilirubin Negative Urine Urobilinogen 0.2 Ur Leukocyte Esterase Negative Urine RBC 2-5 A Urine WBC 0-2 Ur Squamous Epith Cells Few Urine Bacteria Few A Salicylates < 1.0 L Urine Opiates Screen Negative Ur Oxycodone Screen Negative Urine Methadone Screen Negative Acetaminophen < 10.0 L Ur Barbiturates Screen Negative U Tricyclic Antidepress Negative Ur Phencyclidine Scrn Negative Ur Amphetamines Screen Negative U Methamphetamines Scrn Negative U Benzodiazepines Scrn Negative Urine Cocaine Screen Negative U Marijuana (THC) Screen Negative Ur Drug Screen Comment See Note Ethyl Alcohol < 0.01 L 03/18/24 23:00 WBC RBC Hgb Hct MCV MCH MCHC RDW Coeff of Miranda Plt Count Neut % (Auto) Lymph % (Auto) [place] % (Auto) Eos % (Auto) Baso % (Auto) Neut # (Auto) Lymph # (Auto) [place] # (Auto) Eos # (Auto) Baso # (Auto) Abs Immat Gran (auto) Imm/Tot Granulo (auto) INR Sodium 123 L* Potassium Chloride Carbon Dioxide Anion Gap BUN Creatinine Estimated Creat Clear Estimated GFR Glucose Lactate Calcium Magnesium Total Bilirubin Direct Bilirubin AST ALT Alkaline Phosphatase Total Creatine Kinase Troponin I C-Reactive Protein Total Protein Albumin Lipase Urine Color Urine Appearance Urine pH Ur Specific [place] Urine Protein Urine Glucose (UA) Urine Ketones Urine Blood Urine Nitrite Urine Bilirubin Urine Urobilinogen Ur Leukocyte Esterase Urine RBC Urine WBC Ur Squamous Epith Cells Urine Bacteria Salicylates Urine Opiates Screen Ur Oxycodone Screen Urine Methadone Screen Acetaminophen Ur Barbiturates Screen U Tricyclic Antidepress Ur Phencyclidine Scrn Ur Amphetamines Screen U Methamphetamines Scrn U Benzodiazepines Scrn Urine Cocaine Screen U Marijuana (THC) Screen Ur Drug Screen Comment Ethyl Alcohol
[2024-03-19 08:01] LABS: Basophils Absolute Auto 0.04 K/uL (0.00-0.30); Basophils Percent Auto 0.7 % (0.0-3.0); Eosinophils Absolute Auto 0.07 K/uL (0.00-0.50); Eosinophils Percent Auto 1.2 % (0.0-7.0); Hematocrit 35.5 % (33.0-51.0); Hemoglobin* 12.3 gm/dL (12.0-16.0); Immature Granulocytes Abs Auto 0.01 K/uL (0.00-0.30); Immature Granulocytes Pct Auto 0.2 %; Lymphocytes Percent Auto 15.2 % (20-44); Mean Corpuscular HGB Conc 35 gm/dL (32-36); Mean Corpuscular Hemoglobin 32 pg (26-34); Mean Corpuscular Volume 93 fL (80-100); Monocytes Percent Auto 10.9 % (0.0-11.0); Neutrophils Percent Auto 71.8 % (42.0-72.0); Platelet Count* 161 K/uL (140-440); RDW Coefficient of Variation % 11.6 % (11.5-15.5); White Blood Count* 5.85 K/uL (4.50-11.00)
[2024-03-19 08:06] LABS: Slide Review Reflex No
[2024-03-19 08:20] LABS: Chloride* 92 mmol/L (96-114)
[2024-03-19 08:21] LABS: Albumin* 4.8 g/dL (3.3-5.0); Potassium* 3.9 mmol/L (3.6-5.1); Sodium* 125 mmol/L (135-149)
[2024-03-19 08:23] LABS: Creatinine* 0.5 mg/dL (0.5-1.5); Est. Creatinine Clearance* 113.43; Estimated Glomerular Filt Rate 113 ml/min
[2024-03-19 08:24] LABS: Alanine Aminotransferase* 176 U/L (4-35); Alkaline Phosphatase* 41 U/L (40-150); Anion Gap 12 mEq/L (7-15); Aspartate Amino Transferase* 148 U/L (12-35); Bilirubin Direct* 0.5 mg/dL (0.0-0.5); Bilirubin Total* 1.8 mg/dL (0.1-1.5); Blood Urea Nitrogen* 9 mg/dL (7-30); Calcium* 9.1 mg/dL (8.4-10.6); Carbon Dioxide* 21 mmol/L (20-32); Gamma Glutamyl Transpeptidase* 471 U/L (8-55); Glucose* 79 mg/dL (60-115); Total Protein* 7.5 g/dL (6.0-8.3)
[2024-03-19] MEDS: 0.9 % SODIUM CHLORIDE 1000 ml 1,000 ML 75 ML IV ×2 (08:25→21:50)
[2024-03-19] MEDS: GABAPENTIN 300 MG CAPSULE PO ×2 (08:34→20:48)
[2024-03-19] MEDS: FOLIC ACID 1 MG TABLET PO (08:34)
[2024-03-19] MEDS: MAGNESIUM IV 2 GM/50 ML PIGGYBACK IVPB (14:57)
[2024-03-19] MEDS: PHENobarbitaL 65 MG/ML inj IVP (16:19)
[2024-03-19] MEDS: SODIUM CHLORIDE 0.9 % (FLUSH) 10 ML SYRINGE 5 ML IVF ×2 (16:19→20:49)
[2024-03-19 16:40] LABS: C.Difficile Negative (Negative); CDIFFEPI 027 PRESUMPTIVE NEGATIVE (Negative)
[2024-03-19] MEDS: NICOTINE 21 MG PATCH 1 PATCH TRANSDERMA (18:29)
[2024-03-19] MEDS: THIAMINE 100 MG TABLET PO (18:29)
--- NOTE | 2024-03-19 19:29 | PC.NURSE ---
end of shift/ pt is alert and she repeats alot of question. she does not remember things well. she is eating and drinking and voiding. she is very unsteady on her feet and is a 1-2 assist to the BSC. IV is patent. tele is NSR to ST. she got po Ativan on and off, she also got IV withdrawal Meds/ phenobarbital. Ciwa 6-10 today she is shaking she has a Headache. she is anxious and restless. later 2 times she has asked if someone is sitting in the chair. charge nurse and md are aware. she is not understand call light, she has locked her cell phone for 10 minutes several times, she is having a hard time using her phone. she does not understand the fluid restriction and call light and bed alarms. she is close to the dest and alarms are on. nicotine patch is pn.
[2024-03-19] MEDS: ENOXAPARIN 40 MG/0.4 ML INJ SUBCUT (20:48)
--- NOTE | 2024-03-19 23:10 | PC.NURSE ---
Shift note: Pt is unsteady, BSC to prevent falls. Alert and oriented. At 2100, CWAIR was 10, Ativan 2mg given, reassessed at 2200 was 6. Appeared to have tremors to the upper extremities. Fall risk and bed alarm in place.
[2024-03-20] VITALS (15 sets, daily range): BP systolic 124–150; BP diastolic 86–100; PULSE 75–111; RESP 16–20; TEMP 36.9–37.4; O2SAT 96–100
--- NOTE | 2024-03-20 05:56 | PC.NURSE ---
Pt rested well this night. Up to BR this morning and voided. Very shaky on feet. A1GB. CIWA @ 5-6 overnight. Tele NSR was no longer Sinus Tach.
[2024-03-20] MEDS: OMEPRAZOLE 20 MG CAPSULE DR PO (06:05)
[2024-03-20 07:30] LABS: Hematocrit 33.5 % (33.0-51.0); Hemoglobin* 11.3 gm/dL (12.0-16.0); Mean Corpuscular HGB Conc 34 gm/dL (32-36); Mean Corpuscular Hemoglobin 32 pg (26-34); Mean Corpuscular Volume 95 fL (80-100); Platelet Count* 130 K/uL (140-440); Red Blood Count 3.51 m/uL (4.00-5.20); White Blood Count* 3.17 K/uL (4.50-11.00)
[2024-03-20 07:38] LABS: Slide Review Reflex No
[2024-03-20 07:41] LABS: Chloride* 99 mmol/L (96-114); Potassium* 3.7 mmol/L (3.6-5.1); Sodium* 129 mmol/L (135-149)
[2024-03-20 07:44] LABS: Anion Gap 6 mEq/L (7-15); Blood Urea Nitrogen* 7 mg/dL (7-30); Carbon Dioxide* 24 mmol/L (20-32); Creatinine* 0.6 mg/dL (0.5-1.5); Est. Creatinine Clearance* 95.79; Estimated Glomerular Filt Rate 109 ml/min; Glucose* 86 mg/dL (60-115)
[2024-03-20 07:45] LABS: Calcium* 8.1 mg/dL (8.4-10.6); Magnesium* 2.4 mg/dL (1.5-2.6)
[2024-03-20] MEDS: LORazepam 1 MG TABLET PO (08:29)
[2024-03-20] MEDS: FOLIC ACID 1 MG TABLET PO (08:30)
[2024-03-20] MEDS: GABAPENTIN 300 MG CAPSULE PO ×2 (08:30→20:19)
[2024-03-20] MEDS: 0.9 % SODIUM CHLORIDE 1000 ml 1,000 ML 75 ML IV (10:09)
--- NOTE | 2024-03-20 12:44 | P.IMPN_ITS ---
Progress Note: A&P Assessment and plan (1) Acute hyponatremia: Problem details: - presumably secondary to beer potomania, severe - low-dose NS, fluid restriction - encourage high solute po intake (protein supplementation, etc) - monitor sodium closely to ensure appropriate rate of correction - 03/19 sodium 121-123-125, continue monitor. Consider additional sodium tablets tomorrow if needed. Remainder electrolytes currently adequate. IV Mag supplement ordered for magnesium of 1.9 - sodium 129. Sodium tablet started. Continue protein intake Status: Acute (2) Lactic acidosis: Problem details: - lactate 6.1 in ER 03/18/24 - appears 2/2 acute dehydration, likely also a starvation component given decreased po intake in the setting of alcohol use disorder - no evidence of acute infectious process - continue IVFs, follow lactate - 03/19 lactate 1.0 following IVF -discontinuing IVF, improved oral intake Status: Acute (3) Alcohol use disorder: Problem details: - last drink 03/17/24 in the evening - with sequela of elevated LFTs, hyponatremia - high risk for withdrawal - given one dose of Phenobarbital and initiated Gabapentin 03/18/24, CIWA and prn Lorazepam - 03/19 adding phenobarbital 65 mg b.i.d. p.r.n. following CIWA protocol given ongoing symptomatology, vitals - continue thiamine, folic acid 03/20: new client banking services clerk tomorrow for resources. Nutrition consult Status: Acute (4) Closed head injury: Problem details: - 03/18/24, syncopal episode at work, intoxicated - no acute abnormalities on head CT 03/18/24 Status: Acute (5) Syncope: Problem details: - in setting of chronic alcohol use - telemetry - echo 03/19 shows 1. Normal LV size, normal wall thickness, normal function with an estimated EF of 60 - 65%. 2. Right ventricular cavity size is normal, global systolic RV function is normal. 3. No significant valve disease detected. While this episode could have been a black out while intoxicated, close follow-up with PCP for further workup as deemed necessary Status: Acute (6) Transaminitis: Problem details: - AST 148, ALT 176, GGT 471, total bili 1.8 - continue to monitor Status: Acute Plan Continue CIWA, Ativan, phenobarbital as needed. new client banking services clerk and nutrition consult Thursday. Recheck BMP and likely discharge Thursday Time Spent With Patient Total time spent: Total time spent caring for the patient today was 45 minutes. This includes time spent for the visit reviewing the chart, time spent during the visit, time spent after the visit and documentation and planning in coordination of care. Subjective Date Seen: 03/20/24 Interval history: Patient is seen sitting up in a chair this morning. Remains quite tremulous. Slept a little better last night. Denies headache or dizziness. Denies chest pain or shortness of breath. Tolerating orals without nausea or vomiting but still not much of an appetite. Patient tells me this morning she really would like to stop drinking. Has not looked into rehab in the past. Is willing to meet with social work associate tomorrow to discuss resources. Also plans to stop smoking at some point, however, we discussed tackling these two separately. Sodium trending up. Last drink was just under 72 hours ago. Hopefully, she will be able to discharge tomorrow. Exam Narrative: Exam Narrative: PHYSICAL EXAM General: Remains mildy anxious, tremulous Cardiovascular: mild tachycardia persists, S1S2. No pitting edema Pulmonary: CTA bilaterally without rhonchi, rales, expiratory wheezes. No dyspnea on room air Neurological: Alert, answering questions appropriately, cranial nerves intact, no focal findings Extremities: No gross joint deformity or swelling. AROMI. Neurovascularly intact Skin: Warm, dry. Const: Vital Signs, click to edit/add: Vital Signs - 24 hr 03/19/24 13:35 03/19/24 13:36 03/19/24 15:05 Temperature 98.9 F 98.9 F 98.2 F Pulse Rate Pulse Rate [Left R adial] 107 H 107 H 107 H Respiratory Rate 20 20 20 Blood Pressure [Le ft Arm] 145/100 H 145/100 H 145/100 H Pulse Oximetry 98 98 98 Oxygen Delivery Me thod Room Air Room Air Room Air 03/19/24 15:34 03/19/24 15:37 03/19/24 16:16 Temperature 98.0 F Pulse Rate 107 H Pulse Rate [Left R adial] 107 H 101 H Respiratory Rate 20 20 Blood Pressure [Le ft Arm] 109/73 Pulse Oximetry 95 Oxygen Delivery Me thod Room Air 03/19/24 18:06 03/19/24 18:07 03/19/24 19:00 Temperature 98.6 F 98.6 F 99.1 F Pulse Rate Pulse Rate [Left R adial] 108 H 108 H 94 Respiratory Rate 14 14 14 Blood Pressure [Le ft Arm] 142/93 H 142/93 H 129/92 H Pulse Oximetry 97 97 99 Oxygen Delivery Me thod Room Air Room Air Room Air 03/19/24 20:00 03/19/24 20:15 03/19/24 20:47 Temperature 98.6 F 98.6 F Pulse Rate 120 H Pulse Rate [Left R adial] 99 106 H Respiratory Rate 14 14 Blood Pressure [Le ft Arm] 121/89 129/94 H Pulse Oximetry 94 94 Oxygen Delivery Or thod Room Air Room Air 03/19/24 22:00 03/19/24 23:29 03/19/24 23:32 Temperature 98.9 F 98.7 F 98.7 F Pulse Rate Pulse Rate [Left R adial] 100 76 76 Respiratory Rate 14 16 16 Blood Pressure [Le ft Arm] 129/78 138/101 H 138/101 H Pulse Oximetry 94 100 100 Oxygen Delivery Me thod Room Air Room Air Room Air 03/19/24 23:34 03/19/24 23:37 03/20/24 00:05 Temperature 98.7 F Pulse Rate 76 Pulse Rate [Left R adial] 81 Respiratory Rate 16 16 Blood Pressure [Le ft Arm] 124/86 Pulse Oximetry [facility] 03/20/24 02:28 03/20/24 02:29 03/20/24 07:46 Temperature 98.4 F 98.4 F 99.4 F Pulse Rate Pulse Rate [Left R adial] 80 80 98 Respiratory Rate 16 16 20 Blood Pressure [Le ft Arm] 124/93 H 124/93 H 140/100 H Pulse Oximetry 100 100 100 Oxygen Delivery Or thod Room Air Room Air Room Air 03/20/24 07:47 03/20/24 07:47 03/20/24 10:12 Temperature 98.4 F Pulse Rate 111 H Pulse Rate [Left R adial] 106 H 106 H Respiratory Rate 20 20 Blood Pressure [Le ft Arm] 141/96 H Pulse Oximetry 100 [facility] 03/20/24 10:18 Temperature 98.4 F Pulse Rate Pulse Rate [Left R adial] 106 H Respiratory Rate 20 Blood Pressure [Le ft Arm] 141/96 H Pulse Oximetry 100 Oxygen Delivery Me thod Room Air Labs Labs: Laboratory Results - last 24 hr 03/19/24 03/20/24 15:30 06:57 WBC 3.17 L RBC 3.51 L Hgb 11.3 L Hct 33.5 MCV 95 MCH 32 MCHC 34 Plt Count 130 L Sodium 129 L Potassium 3.7 Chloride 99 Carbon Dioxide 24 Anion Gap 6 L BUN 7 Creatinine 0.6 Estimated Creat Clear 95.79 Estimated GFR 109 Glucose 86 Calcium 8.1 L Magnesium 2.4 Stl C. diff Tox B Gene Negative Stl C. diff [id number] PRESUMPTIVE NEGATIVE
[2024-03-20] MEDS: THIAMINE 100 MG TABLET PO (17:59)
[2024-03-20] MEDS: SODIUM CHLORIDE 1 GM TABLET PO (17:59)
[2024-03-20] MEDS: NICOTINE 21 MG PATCH 1 PATCH TRANSDERMA (17:59)
--- NOTE | 2024-03-20 19:20 | PC.NURSE ---
Patient alert and orientedx4. CIWA over 9 once this shift, she was given 1MG Lorazepam given. CIWA down to 6. . Chair and bed alarm triggered multiple times. Patient does not like sitting for a long time as per patient, she is used to standing due to nature of her job. Now saline locked, walking around the hallway with SBA. Patient stable all shift. Able to communicate needs.
[2024-03-20] MEDS: ENOXAPARIN 40 MG/0.4 ML INJ SUBCUT (20:19)
[2024-03-20] MEDS: SODIUM CHLORIDE 0.9 % (FLUSH) 10 ML SYRINGE 5 ML IVF (20:20)
[2024-03-21 02:28] VITALS: BP 135/94; PULSE 82; RESP 16; TEMP 37.1; O2SAT 100
[2024-03-21 02:29] VITALS: BP 135/94; PULSE 82; RESP 16; TEMP 37.1; O2SAT 100
[2024-03-21 06:12] LABS: Hematocrit 32.9 % (33.0-51.0); Hemoglobin* 11.2 gm/dL (12.0-16.0); Mean Corpuscular HGB Conc 34 gm/dL (32-36); Mean Corpuscular Hemoglobin 33 pg (26-34); Mean Corpuscular Volume 97 fL (80-100); Platelet Count* 140 K/uL (140-440); Red Blood Count 3.41 m/uL (4.00-5.20); White Blood Count* 3.63 K/uL (4.50-11.00)
[2024-03-21 06:13] LABS: Slide Review Reflex No
[2024-03-21] MEDS: OMEPRAZOLE 20 MG CAPSULE DR PO (06:27)
[2024-03-21 06:29] LABS: Albumin* 4.1 g/dL (3.3-5.0); Chloride* 103 mmol/L (96-114); Potassium* 4.1 mmol/L (3.6-5.1); Sodium* 134 mmol/L (135-149)
[2024-03-21 06:31] LABS: Anion Gap 6 mEq/L (7-15); Carbon Dioxide* 25 mmol/L (20-32); Creatinine* 0.6 mg/dL (0.5-1.5); Est. Creatinine Clearance* 95.79; Estimated Glomerular Filt Rate 109 ml/min
[2024-03-21 06:32] LABS: Alanine Aminotransferase* 190 U/L (4-35); Alkaline Phosphatase* 41 U/L (40-150); Aspartate Amino Transferase* 223 U/L (12-35); Bilirubin Direct* 0.3 mg/dL (0.0-0.5); Bilirubin Total* 0.8 mg/dL (0.1-1.5); Blood Urea Nitrogen* 6 mg/dL (7-30); Calcium* 8.9 mg/dL (8.4-10.6); Glucose* 88 mg/dL (60-115); Total Protein* 6.5 g/dL (6.0-8.3)
[2024-03-21 07:31] VITALS: PULSE 69
--- NOTE | 2024-03-21 08:27 | P.DS_ITS ---
DS: Providers Provider Date Seen: 03/21/24 Date of admission: 03/18/24 18:03 Primary care physician: Herrera Lobo MD Admitting Clinician: Lory Perez MD Consults: 03/18/24 18:08 Consult to Nutrition [CONS] Routine Comment: Reason for consult:: Miscellaneous 03/20/24 11:37 Consult to [employer] [CONS] Routine Comment: would like resources for chemical dependency Reason for Consult:: Substance Abuse Screening Attending Physician on discharge: Alma Boggs [facility], PA-C [place] Hospitalist Date of Discharge: 03/21/24 DS: Diagnosis Discharge Diagnosis (1) Acute hyponatremia: Status: Acute Problem details: - presumably secondary to beer potomania, severe - low-dose NS, fluid restriction - encourage high solute po intake (protein supplementation, etc) - monitor sodium closely to ensure appropriate rate of correction - 03/19 sodium 121-123-125, continue monitor. Consider additional sodium tablets tomorrow if needed. Remainder electrolytes currently adequate. IV Mag supplement ordered for magnesium of 1.9 - sodium 129. Sodium tablet started. Continue protein intake Sodium improved to 134 prior to discharge. Nutrition consulted given decreasing appetite in setting of chronic alcohol use disorder. Ongoing management with PCP. (2) Lactic acidosis: Status: Resolved Problem details: - lactate 6.1 in ER 03/18/24 - appears 2/2 acute dehydration, likely also a starvation component given decreased po intake in the setting of alcohol use disorder - no evidence of acute infectious process - continue IVFs, follow lactate - 03/19 lactate 1.0 following IVF -discontinuing IVF, improved oral intake Resolved prior to discharge (3) Alcohol use disorder: Status: Acute Problem details: - last drink 03/17/24 in the evening - with sequela of elevated LFTs, hyponatremia - high risk for withdrawal - given one dose of Phenobarbital and initiated Gabapentin 03/18/24, CIWA and prn Lorazepam - 03/19 adding phenobarbital 65 mg b.i.d. p.r.n. following CIWA protocol given ongoing symptomatology, vitals - continue thiamine, folic acid 03/20: clinical services specialist tomorrow for resources. Nutrition consult Patient verbalizing request for meeting with outreach and education social worker to discuss resources for chemical dependency. Provided prior to discharge. Will seek fami ly support with goal to remain abstinent. (4) Closed head injury: Status: Acute Problem details: - 03/18/24, syncopal episode at work, intoxicated - no acute abnormalities on head CT 03/18/24 No sequelae. Outpatient follow-up as needed. (5) Syncope: Status: Acute Problem details: - in setting of chronic alcohol use - telemetry - echo 03/19 shows 1. Normal LV size, normal wall thickness, normal function with an estimated EF of 60 - 65%. 2. Right ventricular cavity size is normal, global systolic RV function is normal. 3. No significant valve disease detected. While this episode could have been a black out while intoxicated, close follow-up with PCP for further workup as deemed necessary. (6) Transaminitis: Status: Acute Problem details: - AST 148, ALT 176, GGT 471, total bili 1.8 - continue to monitor Persistent in setting of chronic alcohol use disorder. Outpatient follow-up with PCP. (7) Scalp hematoma: Status: Acute Problem details: -CT shows Moderate-sized left parietal scalp hematoma and contusion Symptomatic cares as needed. Stable, pain improved. DS: Summary Hospital Course Hospital Course: Course of care and details as noted above. Admitted to hospital floor following syncopal episode while intoxicated. Telemetry. CIWA protocol with use of Ativan and phenobarbital. Echocardiogram completed. Hyponatremia managed, improved to 134 prior to discharge. Patient met with Nutrition and social media specialist for further resources. Verbalizes motivation to continue abstinence. Outpatient follow-up with PCP for ongoing management. Remainder of chronic medical comorbidities were monitored and managed with home medications. Status at Discharge Overall status at discharge: patient is back to baseline Time Spent with Patient Time attestation: Total time spent providing and/or coordinating discharge services: Time spent: Greater than 30 minutes Exam Narrative: Exam Narrative: PHYSICAL EXAM General: Pleasant, conversant, NAD Cardiovascular: RRR Pulmonary: No dyspnea Neurological: Alert, answering questions appropriately Skin: Warm, dry. Const: Vital Signs, click to edit/add: Vital Signs - 24 hr 03/20/24 10:12 03/20/24 10:18 03/20/24 14:00 Temperature 98.4 F 98.4 F Pulse Rate Pulse Rate [Left R adial] 106 H 106 H Respiratory Rate 20 20 Blood Pressure [Le ft Arm] 141/96 H 141/96 H Pulse Oximetry 100 100 Oxygen Delivery Me thod Room Air Room Air Room Air 03/20/24 15:33 03/20/24 15:33 03/20/24 15:51 Temperature 98.9 F Pulse Rate 95 Pulse Rate [Left R adial] 91 91 Respiratory Rate 19 19 Blood Pressure [Le ft Arm] 150/94 H Pulse Oximetry 97 Oxygen Delivery Ky thod Room Air 03/20/24 19:23 03/20/24 19:35 03/20/24 21:20 Temperature 98.6 F 98.6 F Pulse Rate 85 Pulse Rate [Left R adial] 82 82 Respiratory Rate 16 16 Blood Pressure [Le ft Arm] 140/91 H 140/91 H Pulse Oximetry 99 99 Oxygen Delivery Ky thod Room Air Room Air 03/20/24 22:17 03/20/24 22:18 03/20/24 22:19 Temperature 98.6 F 98.6 F Pulse Rate Pulse Rate [Left R adial] 75 75 75 Respiratory Rate 16 16 16 Blood Pressure [Le ft Arm] 133/89 133/89 Pulse Oximetry 96 96 Oxygen Delivery Ky thod Room Air Room Air 03/21/24 02:28 03/21/24 02:29 03/21/24 07:31 Temperature 98.8 F 98.8 F Pulse Rate 69 Pulse Rate [Left R adial] 82 82 Respiratory Rate 16 16 Blood Pressure [Le ft Arm] 135/94 H 135/94 H Pulse Oximetry 100 100 [facility] Room Air DS: Data Data Completed and Pending Completed studies during hospitalization: Urine culture remarkable Labs on day of discharge: Labs from last 24 hours 03/21/24 05:43 WBC 3.63 L RBC 3.41 L Hgb 11.2 L Hct 32.9 L MCV 97 MCH 33 MCHC 34 Plt Count 140 Sodium 134 L Potassium 4.1 Chloride 103 Carbon Dioxide 25 Anion Gap 6 L BUN 6 L Creatinine 0.6 Estimated Creat Clear 95.79 Estimated GFR 109 Glucose 88 Calcium 8.9 Total Bilirubin 0.8 Direct Bilirubin 0.3 AST 223 H ALT 190 H Alkaline Phosphatase 41 Total Protein 6.[address] scan - head: Attestation: I have reviewed the pertinent imaging results. Radiologist's impression: No acute intracranial infarct or hemorrhage. No midline shift. No abnormal extra-axial fluid collection. The ventricles are of normal caliber. Moderate-sized left parietal scalp hematoma and contusion. No calvarial fracture. Paranasal sinuses and mastoid air cells are well pneumatized. IMPRESSION: 1. Moderate-sized left parietal scalp hematoma and contusion. 2. No acute intracranial traumatic injury. Discharge Plan Discharge Disposition: Home, Self-Care Date of Admission: 03/18/24 18:03 Attending Provider on Discharge: Alma Boggs Primary Care Provider: Herrera Lobo Condition: Stable Anticipated Discharge Date/Time: 03/21/24 10:29 Discharge Medications: Continued norethindrone (contraceptive) 0.35 mg tablet 0.35 mg PO QDAY Qty: 84 4RF Discharge Orders: Discharge Order (Routine); Ordered 03/21/24 Ordered By: Alma Boggs Patient Education: Hyponatremia (GEN), Syncope (GEN), Alcohol Use Disorder (GEN) Activity Level: No Restrictions Discharge Diet: Regular Follow Up Appointments: Herrera Lobo MD [Primary Care Provider] - 03/24/24 11:15 am ([facility] follow-up appointment. ) Forms: [employer] Info Instructions
[2024-03-21] MEDS: SODIUM CHLORIDE 1 GM TABLET PO (08:39)
[2024-03-21] MEDS: FOLIC ACID 1 MG TABLET PO (08:39)
[2024-03-21] MEDS: GABAPENTIN 300 MG CAPSULE PO (08:39)
[2024-03-21] MEDS: SODIUM CHLORIDE 0.9 % (FLUSH) 10 ML SYRINGE 5 ML IVF (08:53)
[2024-03-21 09:06] VITALS: BP 159/96; PULSE 88; RESP 16; TEMP 36.9; O2SAT 98
[2024-03-21 09:07] VITALS: BP 159/96; PULSE 88; RESP 16; TEMP 36.9; O2SAT 98
[2024-03-21 09:47] VITALS: BMI 21.0
--- NOTE | 2024-03-21 11:41 | PC.SOCIAL ---
Discharge planning: picking table worker met with pt and provided her with resources for stopping/cutting back on her alcohol use; i.e.: information on Alcoholics Anonymous, list of area inpatient/outpatient agencies that provide substance abuse treatment and information on the Recovery Support Program at [facility]. Pt was thankful for the information and plans to do more research on her own. Social work to follow-up as needed.
--- NOTE | 2024-03-21 13:30 | PC.NURSE ---
Discharge - Pt alert, oriented, cooperative. Up independently in room. Tolerating RA and regular diet, reported decreased appetite. Denied pain, SOB, n/v, visual/audio disturbances. IV removed with catheter intact. D/C education given to pt with vevrbalized understanding. Pt appeared teary eyed and weepy regarding circumstances surrounding hospital stay. RN provided emotional support and listened to pt concerns. RN provided reassurance with pt mood improving. Pt d/c to home with spouse via wheelchair at approximately 1300.
== END 2024-03-21 13:03 | disposition home or self-care (01) | DRG 422 ==
LOC: ED 17:41 → MEDSURG 18:00
PROVIDERS: Physician Assistant; Admitting Provider Family Medicine; Emergency Provider Family Medicine; PCP Family Medicine; Visit Provider Family Medicine
DX: E87.1 Hypo-osmolality and hyponatremia (principal); R55 Syncope and collapse; F10.20 Alcohol dependence, uncomplicated; E87.21 Acute metabolic acidosis; E86.0 Dehydration; F10.288 Alcohol dependence with other alcohol-induced disorder; R74.01 Elevation of levels of liver transaminase levels; S00.03XA Contusion of scalp, initial encounter; G62.1 Alcoholic polyneuropathy; F17.210 Nicotine dependence, cigarettes, uncomplicated; F33.9 Major depressive disorder, recurrent, unspecified
CPT/HCPCS: 36415; 70450; 80048; 80076; 80143; 80179; 80306; 81001; 82077; 82550; 82977; 83605; 83690; 83735; 84295; 84484; 85025; 85027; 85610; 86140; 87086; 87493; 93005; 93306; 94761; 99284; 99285; A9270; J1650; J2060; J2470; J2560; J3475; J7030; S4990

== ENCOUNTER 2024-04-06 11:03 | Outpatient (CLI) | payer BC, SELFPAY | END 2024-04-06 11:04 | disposition home or self-care (01) | PROVIDERS: PCP Family Medicine; Visit Provider Family Medicine | DX: E87.1 Hypo-osmolality and hyponatremia (principal); R74.01 Elevation of levels of liver transaminase levels; Z13.0 Encounter for screening for diseases of the blood and blood-forming organs and certain disorders involving the immune mechanism | CPT/HCPCS: 80048; 80076; 85025 ==

== ENCOUNTER 2024-12-27 13:14 | Outpatient (CLI) | payer BC, SELFPAY | END 2024-12-27 13:15 | disposition home or self-care (01) | PROVIDERS: PCP Family Medicine; Visit Provider Family Medicine | DX: D64.9 Anemia, unspecified (principal); F10.11 Alcohol abuse, in remission | CPT/HCPCS: 80053; 82728; 85025 ==